=== PATIENT | male | born 1980 | race Caucasian/White ===

== ENCOUNTER 2018-08-24 09:55 | Day surgery (SDC) | payer OTHER ==
[~2018-08-24 09:55] MED LIST: CEFAZOLIN 1 GM INJ; ONDANSETRON 4 MG INJ; ROPIVACAINE 0.5 % 30 ML VIAL; SEVOFLURANE 15 MIN
[2018-08-24 12:06] LABS: ADD MAN DIFF? NO
[2018-08-24] MEDS: SOD CHLORIDE 0.9% 1,000 ML IV (12:07)
[2018-08-24 12:32] LABS: ALANINE AMINOTRANSFERASE 40 IU/L (13-69); ALBUMIN 4.9 g/dl (3.3-4.9); ALKALINE PHOSPHATASE 73 IU/L (42-121); ANION GAP 5 (5-13); ASPARTATE AMINO TRANSFERASE 38 IU/L (15-46); BILIRUBIN,INDIRECT 0.9 mg/dl (0-1.1); BILIRUBIN,TOTAL 0.9 mg/dl (0.2-1.3); BLOOD UREA NITROGEN 15 mg/dl (7-20); CALCIUM 10.1 mg/dl (8.4-10.2); CARBON DIOXIDE 30 mmol/L (21-31); CHLORIDE 107 mmol/L (97-110); Estimated GFR > 60 mL/min (>60); GLUCOSE 97 mg/dl (70-220); INR 1.03; POTASSIUM 4.1 mmol/L (3.5-5.1); PROTIME 13.6 Sec (11.9-14.9); PT RATIO 1.1; SODIUM 142 mmol/L (135-144); TOTAL PROTEIN 8.4 g/dl (6.1-8.1)
[2018-08-24 12:33] LABS: BASOPHILS % 0.7 % (0.0-2.0); EOSINOPHILS # 0.1 10^3/ul (0.0-0.5); EOSINOPHILS % 1.7 % (0.0-7.0); HEMATOCRIT 48.2 % (42.0-52.0); LYMPHOCYTES # 1.8 10^3/ul (0.8-2.9); LYMPHOCYTES % 30.4 % (15.0-51.0); MEAN CORPUSCULAR HEMOGLOBIN 29.8 pg (29.0-33.0); MEAN CORPUSCULAR HGB CONC 35.3 g/dl (32.0-37.0); MEAN CORPUSCULAR VOLUME 84.4 fl (82.0-101.0); MEAN PLATELET VOLUME 9.7 fl (7.4-10.4); MONOCYTE # 0.3 10^3/ul (0.3-0.9); MONOCYTES % 4.4 % (0.0-11.0); NEUTROPHIL # 3.7 10^3/ul (1.6-7.5); NEUTROPHILS % 62.6 % (39.0-77.0); PARTIAL THROMBOPLASTIN TIME 30.9 Sec (23.0-35.0); PLATELET COUNT 252 10^3/UL (140-415); RED BLOOD COUNT 5.71 10^6/ul (4.70-6.10); RED CELL DISTRIBUTION WIDTH 13.2 % (11.5-14.5)
[2018-08-24 12:35] LABS: CREATININE 1.26 mg/dl (0.61-1.24)
[2018-08-24] MEDS ORDERED: METOCLOPRAMIDE 10 MG INJ (13:37)
[2018-08-24] MEDS ORDERED: FENTAnyl 50 MCG/ML VIAL (13:37)
[2018-08-24] MEDS ORDERED: MIDAZOLAM 1 MG/ML 2 ML INJ (13:38)
[2018-08-24] MEDS ORDERED: LABETALOL HCL 20MG INJ IV (14:30)
[2018-08-24] MEDS ORDERED: LEVALBUTEROL (NEB) 0.63 MG/3 ML AMP HHN (14:30)
[2018-08-24] MEDS: CEFAZOLIN 2 GM/50 ML (PMX) 50 ML IVPB (14:30)
[2018-08-24] MEDS ORDERED: FENTAnyl 50 MCG/ML VIAL IV (14:30)
[2018-08-24] MEDS ORDERED: ONDANSETRON 4 MG INJ IV (14:30)
[2018-08-24] MEDS ORDERED: hydrALAzine 20 MG INJ IV (14:30)
[2018-08-24] MEDS ORDERED: DIPHENHYDRAMINE 50 MG INJ IV (14:30)
[2018-08-24] MEDS ORDERED: MEPERIDINE 25 MG INJ IV (14:30)
[2018-08-24] MEDS ORDERED: PROPOFOL 20 ML (15:04)
[2018-08-24] MEDS ORDERED: LIDOCAINE 2% (SDV) 5 ML INJ (15:04)
[2018-08-24] MEDS: HYDROmorphONE 1 MG/5 ML IV SYRINGE IV ×3 (15:49→16:13)
[2018-08-24] MEDS: FENTAnyl 50 MCG/ML VIAL IV ×2 (15:50→16:05)
[2018-08-24] MEDS: HYDROCODONE/APAP (5/325) TAB PO (16:09)
== END 2018-08-24 17:34 | disposition home or self-care (01) ==
LOC: SDS 09:55
DX: K40.90 Unilateral inguinal hernia, without obstruction or gangrene, not specified as recurrent (principal)
CPT/HCPCS: 49507; 80053; 85025; 85610; 85730